=== PATIENT | male | born 1955 | race Caucasian/White ===

== ENCOUNTER 2024-03-25 05:51 | Day surgery (SDC) | payer MEDICARE, SELFPAY ==
[2024-03-21 12:13] VITALS: BMI 28.4
[2024-03-21 12:46] LABS: % Eosinophils 4.4 % (0-6); % Immature Granulocytes 0.5 % (0-0.5); % Lymphocytes 24.6 % (20.5-51.1); % Monocytes 8.8 % (1.7-9.3); % Neutrophils 60.7 % (42.2-75.2); Absolute Basophils 0.1 10^3/uL (0-0.2); Absolute Eosinophils 0.3 10^3/uL (0-0.7); Absolute Lymphocytes 1.9 10^3/uL (1.2-3.4); Absolute Monocytes 0.7 10^3/uL (0.1-0.6); Absolute Neutrophils 4.7 10^3/uL (1.4-6.5); Hematocrit 46.5 % (39.0-52.0); Hemoglobin 16.6 g/dL (13.0-18.0); Mean Corp Hgb Conc. 35.7 g/dL (33.0-37.0); Mean Corpuscular Hgb 30.7 pg (27.0-31.0); Mean Platelet Volume 10.5 fL (7.4-10.4); Nucleated Red Blood Cells % 0 % (-); Platelet Count 200 10^3/uL (130-400); Red Blood Cell Count 5.41 10^6/uL (4.70-6.10); Red Cell Dist. Width 12.9 % (11.5-14.5); White Blood Cell Count 7.8 10^3/uL (4.8-10.8)
[2024-03-21 13:15] LABS: INR 1.13
[2024-03-21 13:38] LABS: ALT (SGPT) 22 U/L (0-50); AST (SGOT) 21 U/L (17-59); Albumin 4.4 g/dl (3.5-5.0); Alkaline Phosphatase 125 U/L (38-126); Blood Urea Nitrogen 21 mg/dl (9-20); Calcium 9.8 mg/dl (8.4-10.2); Carbon Dioxide 27 mmol/L (22-30); Chloride 103 mmol/L (98-107); Estimated Creatinine Clearance 79 ml/min; Glucose 91 mg/dl (70-99); Magnesium 1.8 mg/dl (1.6-2.3); Potassium 4.8 mmol/L (3.5-5.1); Sodium 141 mmol/L (135-145); Total Bilirubin 2.2 mg/dl (0.2-1.3); eGFR > 60.00
[2024-03-25] VITALS (14 sets, daily range): BP systolic 148–167; BP diastolic 82–104; BMI 27.9
--- NOTE | 2024-03-25 07:05 | PTCARENOTE ---
Pt's blood pressure is 148/98. Pt did not take his cardizem today. Dr Boyd made aware. No orders at this time. Will continue to monitor.
[2024-03-25] MEDS: TYLENOL 1000 MG PO (07:23)
--- NOTE | 2024-03-25 07:37 | ITS.CL.ABL ---
Operations Representative - Ablation
Ablation
Procedure Report:
[facility] Department Chair: Parminder Ribera MD
Procedure Date: 03/25/2024
Patient History:
Patient is a pleasant 60-year-old male with a past medical history significant for hypertension, hyperlipidemia, vertigo, alcohol use, coronary artery atherosclerosis managed medically, paroxysmal symptomatic atrial fibrillation..
See H&P for complete details.
Indication:
Symptomatic paroxysmal atrial fibrillation
Early recurrence following cardioversion x 3
Arrhythmia Specific History:
Prior Medical Therapies for Rate and Rhythm Control:
[ ] Beta-mallika
X Calcium channel-mallika
[ ] Amiodarone
[ ] Dronederone
[ ] Sotalol
[ ] Flecainide
[ ] Dofetilide
[ ] Options limited by bradycardia
[ ] Options limited by comorbid renal disease
Prior Procedural Therapies for AF/AFL:
X Cardioversion
[ ] Pulmonary Vein Isolation
[ ] Posterior Wall Isolation
[ ] Additional lines (Specify)
[ ] Surgical Napoles-MAZE or PVI (Specify)
Procedure Performed:
X AF ablation procedure (47469) -- includes LA/CS pacing, trans-septal, 3D mapping, + ICE
[ ] +IV drug (51627)
[ ] +Other Arrhythmia (27895)
[ ] +Other AF Line/ablation (84941)
Risks and expected recovery has been explained in detail. Alternative options have been explored, and in a shared-decision making fashion we have decided that this was the most appropriate procedure.
Method
NPO status confirmed. Grounding pad applied. Defibrillator pads applied. Continuous surface ECG, pulse oximetry, and blood pressure were monitored. Procedure was performed under general anesthesia, with anesthesia services.
Both groins were clipped, prepped with Chloraprep, and draped in sterile fashion. Time out was called. Local anesthesia administered with bupivacaine. The right and left femoral veins were accessed for catheter placement, using ultrasound guidance,
micro-puncture needle/wire, and modified seldinger technique. 3 sheaths were placed. The following catheters were used:
[ ] Tacticath SE (D/F Curve) ablation catheter
X Viewflex 9Fr ICE catheter
X Inquiry decapolar 6Fr diagnostic catheter
[ ] CRD Hex 6Fr
[ ] Arctic Front Advance Cryoballoon ([ ]28mm[ ]23mm)
[ ] Achieve Advance mapping catheter ([ ]15mm[ ]20mm)
X FlexCath Contour 10 Fr with PulseSelect PFA Catheter
X Advisor HD Grid Mapping Catheter, SE
[ ] AcusVasopharm AcuNav 8 Fr ICE catheter
[ ]Other: [ ]
Intracardiac ultrasound (ICE) was carefully advanced into the right atrium to guide sheath placement over a J-wire, catheter placement, guide trans-septal puncture, identify potential complications, identify anatomic structures and ensure proper
contact between ablation catheter and tissue. A trace/small basal pericardial effusion was noted behind LV/LA at start of procedure which remained unchanged during procedure and at case completion.
Heparin was given prior to trans-septal puncture. Heparin was given to achieve and maintain a target ACT of 300-400 seconds throughout the procedure.
Trans-septal access was performed under ICE guidance. The trans-septal puncture was performed with a SafeSept wire through a Brockenbrough needle assembly through the steerable sheath. The wire was visualized as it entered the LSPV and system
advanced under ICE guidance and fluoroscopy into the LA. The Brockenbrough needle assembly, SafeSept wire and sheath dilator were removed under negative pressure. LA pressure was measured and recorded.
ICE and 3D mapping was performed to identify relevant cardiac structures. A careful 3D map was created to assess for regions of low-voltage and abnormal electrogram signals using HD grid mapping catheter and PulseSelect catheter. Additional mapping
was performed as outlined below.
Prior to ablation, glycopyrrolate was provided. PulseSelect catheter was advanced over J-wire to the ostium of each vein. Pulmonary vein isolation was performed with ostial and antral lesions in a circumferential manner. Contact was visualized via
EAM, ICE, fluoroscopy, and EGM signals. Following completion of ablation lesions, sinus rhythm was restored with a 200J synchronized DCCV and a post-ablation voltage/activation map was performed in sinus rhythm. Entrance and exit block were
confirmed for each vein and the posterior wall.
Catheter and sheath were removed from the left atrium and post-ablation intracardiac echo evaluation was consistent with pre-ablation with no changes and no pericardial effusion and there is no left atrial thrombus or left ventricle thrombus seen.
Electrophysiology study was performed. Hemostasis was obtained with Vascade for each sheath and with manual pressure. Protamine was used for reversal.
Estimated Blood Loss
5 mL
Complications
None
Fluoroscopy: 5.1 minutes; 2.7 DAP; mGy 23.2
Baseline Intervals:
Rhythm: AF
QRS: 90 ms
Post-Procedure Intervals:
VT: 220 ms
QRS: 95 ms
QT: 369 ms
QTc: 419 ms
A-A: 776 ms
R-R: 776 ms
AVWB: 330 ms
AERP: 600/210 ms
Recommendations
- Bedrest with straight-leg precautions as ordered
- Anticipate same day discharge if patient meeting clinical metrics
- Resume home medications as indicated
- Ok to resume anticoagulation tonight if patient and groin sites stable
- PPI daily for 30 days
- Plan for follow-up in office as scheduled
Xiang Nevarez DO
Clinical Cardiac Knockdown [facility]
cc: Pk Ribera MD; Deven Hensley MD
[2024-03-25 08:57] LABS: ACT-LR - POC 358 Seconds (116-155)
[2024-03-25 09:12] LABS: ACT-LR - POC 368 Seconds (116-155)
[2024-03-25 09:56] LABS: ACT-LR - POC 387 Seconds (116-155)
[2024-03-25 10:04] LABS: ACT-LR - POC 181 Seconds (116-155)
--- NOTE | 2024-03-25 10:55 | PTCARENOTE ---
Pt's blood pressure post PVI is 162/98. Pt's pre procedure blood pressure was 148/98. Pt did not take his morning Diltiazem CD. Tammi DE SOUZA at pt bedside and ordered pt's morning dose of diltiazem CD to be given. Will administer meds and
continue to monitor.
[2024-03-25] MEDS: CARDIZEM CD 240 MG PO (11:18)
--- NOTE | 2024-03-25 11:44 | PTCARENOTE ---
Dr Boyd at pt bedside speaking to pt and pt's .
--- NOTE | 2024-03-25 13:12 | W.PN.UPDATE ---
Update Note
Progress Note Update
Ptp seen post PFA. Right groin site with vascade closure, no ht/bleeding, non tender. OOB ambulating, urinating without difficulty. Post EKG NSR 60s, no acute changes. Resume eliquis tonight, continue other meds as before. Followup with Dr. Ribera
in 4 weeks as scheduled. Home today if groin site/tele remain stable.
[2024-03-25 15:37] LABS: ACT-LR - POC > 397 Seconds (116-155)
== END 2024-03-25 13:05 | disposition home or self-care (01) ==
LOC: CATH 05:51
PROVIDERS: ATTENDING PHYSICIAN Internal Medicine Cardiovascular Disease; FAMILY PHYSICIAN Family Medicine; OTHER PHYSICIAN Internal Medicine Interventional Cardiology
DX: I48.0 Paroxysmal atrial fibrillation (principal); I10 Essential (primary) hypertension; E78.5 Hyperlipidemia, unspecified; R42 Dizziness and giddiness; I25.10 Atherosclerotic heart disease of native coronary artery without angina pectoris; Z79.01 Long term (current) use of anticoagulants; Z79.899 Other long term (current) drug therapy
CPT/HCPCS: C1732; C1769; C1733; C1759; C1894; 36415; 75572; 80053; 83735; 85025; 85347; 85610; 86850; 86900; 86901; 93005; 93656; C1730; C1760; C1766; Q9967

== ENCOUNTER → 2024-06-27 12:00 | Outpatient (REF) | payer MEDICARE, SELFPAY | LOC: DHSLP 12:00 | PROVIDERS: ATTENDING PHYSICIAN Internal Medicine Cardiovascular Disease; FAMILY PHYSICIAN Family Medicine | DX: G47.33 Obstructive sleep apnea (adult) (pediatric) (principal) | CPT/HCPCS: 95806 ==